=== PATIENT | female | born 1970 | race Caucasian/White ===

== ENCOUNTER 2017-06-27 06:35 | Emergency (ER) | payer OTHER ==
[2017-06-27] MEDS ORDERED: NS 1,000 ML IV (07:39)
[2017-06-27] MEDS: KETOROLAC 60 MG/2 ML VIAL (J1885) IM (08:12)
[2017-06-27 08:38] LABS: D-DIMER QUANT 937.1 ng/ml (<500)
[2017-06-27 08:49] LABS: CPK CREATINE PHOSPHOKINASE 91 U/L (26-192); TROPONIN I < 0.02 NG/ML (< 0.10)
[2017-06-27 08:50] LABS: MB/CK RELATIVE INDEX 1.09 (< OR =4)
[2017-06-27 09:43] LABS: ANION GAP 9 MEQ/L (8-16); BLOOD UREA NITROGEN 17 MG/DL (7-18); CALCIUM LEVEL 8.9 MG/DL (8.5-10.1); CARBON DIOXIDE LEVEL 24 MEQ/L (21-32); CHLORIDE LEVEL 103 MEQ/L (98-107); CREATININE FOR GFR 0.82 MG/DL (0.55-1.30); GLOMERULAR FILTRATION RATE > 60.0 (>58); GLUCOSE, FASTING 97 MG/DL (70-100); POTASSIUM SERUM 4.5 MEQ/L (3.5-5.1); SODIUM LEVEL 136 MEQ/L (136-145)
[2017-06-27] MEDS ORDERED: ISOVUE-370 76% 100ML VIAL (Q9967) As Ordered (09:57)
== END 2017-06-27 11:18 | disposition home or self-care (01) ==
LOC: M ED 06:35
DX: R07.89 Other chest pain (principal); I10 Essential (primary) hypertension; Z79.899 Other long term (current) drug therapy; Z88.1 Allergy status to other antibiotic agents; Z88.2 Allergy status to sulfonamides; Z88.8 Allergy status to other drugs, medicaments and biological substances
CPT/HCPCS: Q9967

== ENCOUNTER 2018-11-02 01:53 | Emergency (ER) | payer OTHER ==
[~2018-11-02] VITALS: Ht 160 cm; Wt 88.6 kg
[~2018-11-02 01:53] MED LIST: ADVAIR; DESO0.0557; DICL1GEL3; DOXE25CA; FLUO1OPD; LISI10TA4; MOME50SP2; NAPR-837 PO; OMEP40CA2; VENL75CA2; XYZA5TAB4
[2018-11-02 01:54] VITALS: BP 143/81
[2018-11-02] MEDS ORDERED: methylPREDNISolone INJ 125 MG/2 ML VIAL (J2930) IM ONE (02:30)
== END 2018-11-02 03:51 | disposition home or self-care (01) ==
LOC: M ED 01:53
DX: R22.0 Localized swelling, mass and lump, head (principal); F33.9 Major depressive disorder, recurrent, unspecified; F41.9 Anxiety disorder, unspecified; Z79.899 Other long term (current) drug therapy; Z88.1 Allergy status to other antibiotic agents; Z88.2 Allergy status to sulfonamides; Z88.8 Allergy status to other drugs, medicaments and biological substances
CPT/HCPCS: 96372; 99283; J2930

== ENCOUNTER → 2018-11-13 | Outpatient (REF) ==
[2018-11-13 14:43] LABS: BASO # 0.1 10^3/uL (0.0-0.2); BASO % 0.6 % (0.0-1.0); EOS # 0.3 10^3/uL (0.0-0.50); HEMATOCRIT 37.7 % (36.0-47.0); HEMOGLOBIN 11.9 g/dl (12.0-15.5); LYMPH # 2.6 10^3/uL (1.5-4.5); LYMPH % 21.3 % (24.0-44.0); MEAN CORPUSCULAR HEMOGLOBIN 27.5 pg (27.0-33.0); MEAN CORPUSCULAR HGB CONC 31.6 g/dl (32.0-36.5); MEAN CORPUSCULAR VOLUME 87.1 fl (80.0-96.0); MONO # 0.8 10^3/uL (0.0-0.8); MONO % 6.1 % (0.0-5.0); NEUTROPHILS # 8.6 10^3/uL (1.8-7.7); NEUTROPHILS % 69.5 % (36.0-66.0); PLATELET COUNT, AUTOMATED 412 10^3/uL (150-450); RED BLOOD COUNT 4.33 10^6/uL (4.00-5.40); WHITE BLOOD COUNT 12.4 10^3/uL (4.0-10.0)
== END ==
LOC: M LABSMT 13:44
PROVIDERS: ATTEND Allergy & Immunology Allergy
DX: J45.30 Mild persistent asthma, uncomplicated (principal)

== ENCOUNTER 2019-07-11 23:47 | Emergency (ER) | payer OTHER ==
[~2019-07-11] VITALS: Ht 160 cm; Wt 86.5 kg
[~2019-07-11 23:47] MED LIST changes: -OMEP40CA2; +OMEP40CA97
[2019-07-12] MEDS ORDERED: ONDANSETRON 4MG/2ML VIAL (J2405) IV ONE (00:30)
[2019-07-12] MEDS ORDERED: KETOROLAC 30 MG/ML VIAL (J1885) IV ONE (00:30)
[2019-07-12] MEDS ORDERED: NS 1,000 ML IV ONE (00:30)
[2019-07-12 01:17] LABS: BASO # 0.1 10^3/uL (0.0-0.2); BASO % 0.6 % (0.0-1.0); EOS # 0.2 10^3/uL (0.0-0.5); EOS % 1.3 % (0.0-3.0); HEMATOCRIT 42.9 % (36.0-47.0); LYMPH # 3.1 10^3/uL (1.5-5.0); LYMPH % 27.8 % (24.0-44.0); MEAN CORPUSCULAR HEMOGLOBIN 26.8 pg (27.0-33.0); MEAN CORPUSCULAR HGB CONC 32.6 g/dl (32.0-36.5); MEAN CORPUSCULAR VOLUME 82.2 fl (80.0-96.0); MONO # 0.8 10^3/uL (0.0-0.8); PLATELET COUNT, AUTOMATED 461 10^3/uL (150-450); RED BLOOD COUNT 5.22 10^6/uL (4.00-5.40); WHITE BLOOD COUNT 11.2 10^3/uL (4.0-10.0)
[2019-07-12] MEDS ORDERED: ISOVUE-370 76% 100ML VIAL (Q9967) As Ordered ONE (01:24)
[2019-07-12 01:45] LABS: ALBUMIN 3.6 GM/DL (3.2-5.2); ALT/SGPT 24 U/L (12-78); BILIRUBIN,DIRECT 0.2 MG/DL (0.0-0.2); BILIRUBIN,TOTAL 0.6 MG/DL (0.2-1.0); BLOOD UREA NITROGEN 14 MG/DL (7-18); CALCIUM LEVEL 9.5 MG/DL (8.5-10.1); CARBON DIOXIDE LEVEL 22 MEQ/L (21-32); CHLORIDE LEVEL 103 MEQ/L (98-107); CK-MB VALUE MASS 1.4 NG/ML (<3.6); CPK CREATINE PHOSPHOKINASE 158 U/L (26-192); CREATININE FOR GFR 0.76 MG/DL (0.55-1.30); GLOMERULAR FILTRATION RATE > 60.0 (>58); GLUCOSE, FASTING 84 MG/DL (70-100); LIPASE 100 U/L (73-393); MB/CK RELATIVE INDEX 0.89 (< OR =4); SODIUM LEVEL 135 MEQ/L (136-145); TOTAL PROTEIN 7.6 GM/DL (6.4-8.2); TROPONIN I < 0.02 NG/ML (< 0.10)
--- NOTE | 2019-07-12 02:56 | REPVR ---
PROCEDURE INFORMATION: Exam: CT Abdomen And Pelvis With Contrast Exam date and time: 07/12/2019 12:23 AM Age: 48 years old Clinical indication: Upper abdominal pain and a history of a small bowel obstruction. TECHNIQUE: Imaging protocol: Computed tomography of the abdomen and pelvis with intravenous contrast. Radiation optimization: All CT scans at this facility use at least one of these dose optimization techniques: automated exposure control; mA and/or kV adjustment per patient size (includes targeted exams where dose is matched to clinical indication); or iterative reconstruction. Contrast material: ISO; Contrast volume: 100 ml; Contrast route: AC; COMPARISON: No relevant prior studies available. FINDINGS: Lungs: The imaged portions of the lung bases are clear. Heart: No cardiomegaly or pericardial effusion. Diaphragm: Intact. Liver: The attenuation of the liver is more than 40 Hounsfield units lower in attenuation compared to the spleen, which is compatible with fatty liver infiltration. No liver lesion is seen. The contour of the liver is smooth. No hepatomegaly is noted. Gallbladder and bile ducts: No calcified gallstones are noted. No gallbladder wall thickening, pericholecystic fluid, or pericholecystic inflammatory changes are identified. No dilation of the intrahepatic or extrahepatic bile ducts is noted. Pancreas: Normal. No dilation of the main pancreatic duct is noted. There is no inflammatory fat stranding around the pancreas to suggest acute pancreatitis. Spleen: Normal. No splenomegaly is noted. Adrenals: Normal. No adrenal mass is noted. Kidneys and ureters: The kidneys are normal in appearance. No renal lesion is noted. No calculi are seen in the kidneys or ureters. There is no hydronephrosis or hydroureter. There are no wedge-shaped areas of low attenuation in the kidneys to suggest pyelonephritis. There is no renal abscess or perinephric fluid collection. Stomach and bowel: Postoperative changes are noted from a Sarah fundoplication. There is no evidence for a bowel obstruction, diverticulosis, diverticulitis, colitis, perforated viscus, pneumatosis intestinalis, intussusception, or volvulus. There is a large amount of formed stool in the cecum, ascending colon, and transverse colon. There is a mild amount of formed stool in the descending colon. Appendix: Normal. There is no evidence for appendicitis. Intraperitoneal space: No free air. No fluid collection. There are surgical clips in the upper abdomen. Retroperitoneal space: No fluid collection. No mass. Vasculature: The abdominal aorta is patent, normal in caliber, and there is no dissection. The iliac arteries, common femoral arteries, renal arteries, celiac artery, superior mesenteric artery, and inferior mesenteric artery are patent. There are 2 main right renal arteries and 2 main left renal arteries. The renal veins are patent. Lymph nodes: No enlarged lymph nodes. Bladder: The partially distended urinary bladder is unremarkable. No stones or masses are seen in the bladder. Reproductive: The uterus is anteverted. There is a 12 mm corpus luteal cyst in the left ovary for which follow-up is not necessary. The right ovary is unremarkable. There is a surgical clip in the right adnexa. Bones/joints: No fracture or dislocation is noted. There is no suspicious osteolytic or osteoblastic lesion. There are degenerative changes in the lumbar spine. Soft tissues: There is a midline vertical incision scar in the anterior abdominal wall. There are 2 small fat containing midline incisional hernias located approximately 7 cm above the umbilicus (image 49 of the axial series 201). No soft tissue fluid collection is noted. IMPRESSION: 1. Large amount of formed stool in the cecum, ascending colon, and transverse colon and a mild amount of formed stool in the descending colon. No bowel obstruction. 2. Two small fat containing midline incisional hernias located approximately 7 cm above the umbilicus. 3. Fatty liver. Electronically signed by: Timothy Wilcox On 07/12/2019 02:55:56 AM
[2019-07-12] MEDS ORDERED: MIRA3350 PO (03:12)
[2019-07-12] MEDS ORDERED: MAGN296S16 PO (03:12)
[2019-07-12 03:23] VITALS: BP 120/78
--- NOTE | 2019-07-12 08:00 | ECGEPIP ---
[facility] - ED Test Date: 2019-07-12 Pat Name: MICH ORELLANA Department: Room: - Gender: Female Pct: APOLINAR : 1970 Requested By: EVA Small Order Number: [id number] Reading MD: Crow Prabhakar Measurements Intervals [place] Rate: 87 P: -8 IA: 127 QRS: -7 QRSD: 90 T: 73 QT: 343 QTc: 415 Interpretive Statements SINUS RHYTHM LOW QRS VOLTAGE IN PRECORDIAL LEADS VOLTAGE CRITERIA FOR LVH NONSPECIFIC ST & T-WAVE ABNORMALITY SIMILAR TO 06/27/17 Electronically Signed on 07-12-2019 7:59:49 EDT by Crow Prabhakar
== END 2019-07-12 03:25 | disposition home or self-care (01) ==
LOC: M ED 23:47
DX: K59.00 Constipation, unspecified (principal); I10 Essential (primary) hypertension; J45.909 Unspecified asthma, uncomplicated; F33.9 Major depressive disorder, recurrent, unspecified; F41.9 Anxiety disorder, unspecified; K21.9 Gastro-esophageal reflux disease without esophagitis; Z79.899 Other long term (current) drug therapy; Z88.1 Allergy status to other antibiotic agents; Z88.2 Allergy status to sulfonamides; Z88.8 Allergy status to other drugs, medicaments and biological substances; Z91.048 Other nonmedicinal substance allergy status
CPT/HCPCS: 74177; 80048; 80076; 81001; 82550; 82553; 83690; 84484; 85025; 93005; 96361; 96374; 96375; 99284; J1885; J2405; Q9967

== ENCOUNTER 2020-02-22 04:49 | Emergency (ER) | payer OTHER ==
[~2020-02-22] VITALS: Ht 160 cm; Wt 70.5 kg
[~2020-02-22 04:49] MED LIST changes: +MAGN296S16 PO; +MIRA3350 PO
[2020-02-22] MEDS ORDERED: ASMA1AER3 (04:57)
[2020-02-22] MEDS ORDERED: FLUTISP (04:57)
[2020-02-22] MEDS ORDERED: STRA10CA (04:57)
[2020-02-22] MEDS ORDERED: DOXE50CA (04:57)
[2020-02-22] MEDS ORDERED: NS 1,000 ML IV ONE (05:15)
[2020-02-22 06:05] LABS: BASO % 0.3 % (0.0-1.0); EOS # 0.2 10^3/uL (0.0-0.5); EOS % 1.6 % (0.0-3.0); HEMOGLOBIN 11.9 g/dl (12.0-15.5); LYMPH # 1.9 10^3/uL (1.5-5.0); LYMPH % 16.6 % (24.0-44.0); MEAN CORPUSCULAR HEMOGLOBIN 26.9 pg (27.0-33.0); MEAN CORPUSCULAR HGB CONC 30.5 g/dl (32.0-36.5); MEAN CORPUSCULAR VOLUME 88.2 fl (80.0-96.0); MONO # 0.8 10^3/uL (0.0-0.8); MONO % 6.6 % (0.0-5.0); NEUTROPHILS # 8.6 10^3/uL (1.5-8.5); NEUTROPHILS % 74.5 % (36.0-66.0); PLATELET COUNT, AUTOMATED 367 10^3/uL (150-450); RED BLOOD COUNT 4.42 10^6/uL (4.00-5.40); WHITE BLOOD COUNT 11.6 10^3/uL (4.0-10.0)
[2020-02-22] MEDS ORDERED: ISOVUE-370 76% 100ML VIAL As Ordered ONE (06:10)
[2020-02-22] MEDS ORDERED: MORPHINE 4 MG/ML 1ML VIAL/SYRINGE (J2270) IV PRN (06:15)
[2020-02-22] MEDS ORDERED: ONDANSETRON 4MG/2ML VIAL IV ONE (06:15)
[2020-02-22 06:21] LABS: ALBUMIN 3.1 GM/DL (3.2-5.2); ALT/SGPT 185 U/L (12-78); BILIRUBIN,DIRECT 0.4 MG/DL (0.0-0.2); BILIRUBIN,TOTAL 0.5 MG/DL (0.2-1.0); CK-MB VALUE MASS 1.2 NG/ML (<3.6); CPK CREATINE PHOSPHOKINASE 87 U/L (26-192); LIPASE 80 U/L (73-393); MB/CK RELATIVE INDEX 1.38 (< OR =4); TOTAL PROTEIN 6.7 GM/DL (6.4-8.2); TROPONIN I < 0.02 NG/ML (< 0.10)
--- NOTE | 2020-02-22 06:41 | REPVR ---
PROCEDURE INFORMATION: Exam: CT Abdomen And Pelvis With Contrast Exam date and time: 02/22/2020 6:19 AM Age: 49 years old Clinical indication: Abdominal pain; Generalized; Additional info: Generalized abd pain TECHNIQUE: Imaging protocol: Computed tomography of the abdomen and pelvis with intravenous contrast. Radiation optimization: All CT scans at this facility use at least one of these dose optimization techniques: automated exposure control; mA and/or kV adjustment per patient size (includes targeted exams where dose is matched to clinical indication); or iterative reconstruction. Contrast material: ISOVUE 370; Contrast volume: 100 ml; Contrast route: INTRAVENOUS (IV); COMPARISON: CT ABD/PEL W/IV CONTRAST ONLY 07/12/2019 1:50 AM FINDINGS: Liver: Normal. No mass. Gallbladder and bile ducts: The gallbladder is significantly distended measuring up to 10.1 x 4.3 cm. There is trace pericholecystic fluid. There is mild intrahepatic biliary ductal dilatation. Pancreas: Normal. No ductal dilation. Spleen: Normal. No splenomegaly. Adrenals: Normal. No mass. Kidneys and ureters: Normal. No hydronephrosis. Stomach and bowel: There is apparent thickening of the GE junction. Appendix: No evidence of appendicitis. Intraperitoneal space: Unremarkable. No free air. No significant fluid collection. Vasculature: Unremarkable. No abdominal aortic aneurysm. Lymph nodes: Unremarkable. No enlarged lymph nodes. Urinary bladder: Unremarkable as visualized. Reproductive: There is a 1.8 cm left ovarian cyst. Bones/joints: There is multilevel lumbar spine facet degenerative and productive changes. Soft tissues: There is midline upper abdominal wall hernia measuring 3.3 x 2.5 cm containing omental fat. IMPRESSION: 1. Hydropic gallbladder with trace pericholecystic fluid and mild intrahepatic biliary ductal dilatation suspicious for acute cholecystitis. CBD is upper normal in size. Correlate with LFTs and bilirubin level. Ultrasound may be obtained for further evaluation. 2. Nonspecific thickened GE junction could be secondary to reflux or esophagitis however other underlying etiologies cannot be excluded. 3. 3.3 x 2.5 cm upper abdominal midline surgical scar hernia containing omental fat. 4. 1.8 cm left ovarian cyst. Electronically signed by: Garo Ferraro On 02/22/2020 06:41:22 AM
--- NOTE | 2020-02-22 07:47 | REPVR ---
PROCEDURE INFORMATION: Exam: US Abdomen, Limited; Right Upper Quadrant Exam date and time: 02/22/2020 7:30 AM Age: 49 years old Clinical indication: Abdominal pain; Epigastric; Additional info: Upper abd pain, elevated lfts TECHNIQUE: Imaging protocol: US abdomen. Real time ultrasound with image documentation. Limited exam focused on the right upper quadrant. COMPARISON: CT ABD/PEL W/IV CONTRAST ONLY 02/22/2020 6:14 AM FINDINGS: Liver: The liver is distended containing multiple shadowing gallstones. The gallbladder wall is slightly thickened measuring around 4 mm with some mural edema and pericholecystic hypoechogenicity possibly some fluid. Gallbladder: See "Liver" finding. Common bile duct: The CBD is prominent measuring 7-8 mm. Pancreas: Pancreatic head and body are unremarkable. The pancreatic tail is obscured by bowel gas. Right kidney: The right kidney measures 9.6 x 4.8 x 3.8 cm with dilated renal pelvis likely extrarenal pelvis rather than hydronephrosis. IMPRESSION: 1. Distended gallbladder containing multiple gallstones with sonographic findings suspicious for cholecystitis. 2. Dilated CBD up to 7-8 mm. Correlate with bilirubin level. MRI with MRCP may be obtained to assess for choledocholithiasis or obstructive CBD process. Electronically signed by: Garo Ferraro On 02/22/2020 07:47:16 AM
[2020-02-22] MEDS ORDERED: AUGM875T28 PO (08:06)
[2020-02-22] MEDS ORDERED: NORC1TAB7 PO (08:08)
[2020-02-22] MEDS ORDERED: AUGMENTIN 875 MG TAB PO ONE (08:15)
[2020-02-22 08:42] VITALS: BP 122/85
--- NOTE | 2020-02-22 10:18 | ED PDOC ---
Post-Departure Follow-Up dr covington and dr velez faxed formal report of ct abd/p and gb us for fu Dharmesh Alva MD Feb 22, 2020 10:18
--- NOTE | 2020-02-24 08:55 | ECGEPIP ---
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
== END 2020-02-22 09:05 | disposition home or self-care (01) ==
LOC: M ED 04:49
DX: K80.20 Calculus of gallbladder without cholecystitis without obstruction (principal); K44.9 Diaphragmatic hernia without obstruction or gangrene; Z79.899 Other long term (current) drug therapy; Z88.1 Allergy status to other antibiotic agents; Z88.2 Allergy status to sulfonamides; Z88.8 Allergy status to other drugs, medicaments and biological substances; Z91.048 Other nonmedicinal substance allergy status
CPT/HCPCS: 74177; 76705; 80047; 80076; 82550; 82553; 83690; 84484; 85025; 93005; 93041; 96361; 96374; 96375; 99284; J2270; J2405; Q9967

== ENCOUNTER → 2020-03-10 | Outpatient (CLI) | payer OTHER ==
[~2020-03-10] MED LIST changes: +ASMA1AER3; +AUGM875T28 PO; +DOXE50CA; +FLUTISP; +NORC1TAB7 PO; +STRA10CA
== END ==
LOC: M LABSMTC 12:11
PROVIDERS: ATTEND Anesthesiology
DX: Z01.812 Encounter for preprocedural laboratory examination (principal); Z20.828 Contact with and (suspected) exposure to other viral communicable diseases

== ENCOUNTER 2020-03-15 07:09 | Day surgery (SDC) | payer OTHER ==
[~2020-03-15] VITALS: Ht 160 cm; Wt 70.3 kg
[~2020-03-15 07:09] MED LIST changes: +LIDOCAINE 1% MDV 20ML VIAL SQ PRN; +LR 1,000 ML IV ONE
[2020-03-15] MEDS ORDERED: D5W 250 ML IV ONE (08:45)
[2020-03-15] MEDS ORDERED: BUPIVACAINE/EPIN 0.5% 30 ML VIAL As Ordered ONE (09:12)
[2020-03-15] MEDS ORDERED: fentaNYL 250 MCG/5 ML INJECTION (J3010) As Ordered ONE (09:52)
[2020-03-15] MEDS ORDERED: ONDANSETRON 4MG/2ML VIAL As Ordered ONE (09:52)
[2020-03-15] MEDS ORDERED: KETOROLAC 60MG 2ML VIAL As Ordered ONE (09:52)
[2020-03-15] MEDS ORDERED: ROCURONIUM BROMIDE 50 MG/5 ML VIAL As Ordered ONE (09:52)
[2020-03-15] MEDS ORDERED: LIDOCAINE 2% 100MG/5ML SDV (FOR ANES.) As Ordered ONE (09:52)
[2020-03-15] MEDS ORDERED: dexameTHASONE 4 MG/ML 1ML VIAL (J1100 PER 1MG) As Ordered ONE (09:52)
[2020-03-15] MEDS ORDERED: propofoL 200 MG/20 ML VIAL As Ordered ONE (09:52)
[2020-03-15] MEDS ORDERED: MIDAZOLAM INJ 2MG/2ML VIAL (J2250 PER 1MG) As Ordered ONE (09:52)
[2020-03-15] MEDS ORDERED: ACETAMINOPHEN 1000MG 100ML IV BTL (OFIRMEV) (J0131 PER 10MG) As Ordered ONE (09:59)
[2020-03-15] MEDS ORDERED: SUGAMMADEX SODIUM 500 MG/5 ML VIAL (BRIDION) As Ordered ONE (10:03)
[2020-03-15] MEDS ORDERED: METOCLOPRAMIDE INJ 10MG/2ML VIAL (J2765 PER 1) IV PRN (11:15)
[2020-03-15] MEDS ORDERED: LR 1,000 ML IV SCH (11:15)
[2020-03-15] MEDS ORDERED: fentaNYL 100 MCG/2 ML INJECTION (J3010) IV PRN (11:15)
[2020-03-15] MEDS ORDERED: MORPHINE 2 MG/ML 1ML VIAL (J2270) IV PRN (11:15)
[2020-03-15] MEDS ORDERED: oxyCODONE 5MG TAB PO PRN (11:15)
[2020-03-15] MEDS ORDERED: ONDANSETRON 4MG/2ML VIAL IV PRN (11:15)
[2020-03-15] MEDS ORDERED: NORCO, ANEXSIA 5/325MG TABLET (HYDROcodone/ACETAMINOPHEN) PO PRN (11:30)
[2020-03-15 13:00] VITALS: BP 126/75
--- NOTE | 2020-03-16 08:01 | RO ---
DATE OF OPERATION: 03/15/2020 PREOPERATIVE DIAGNOSIS: Symptomatic cholelithiasis. POSTOPERATIVE DIAGNOSIS: Symptomatic cholelithiasis. PROCEDURE: Robotic cholecystectomy SURGEON: Sumit Brewer DO MEDICAL GENETICS DIRECTOR: Dennise Pablo ANESTHESIA: General ESTIMATED BLOOD LOSS: 5 mL COMPLICATIONS: None. INDICATION FOR PROCEDURE: The patient is a 49-year-old female with multiple previous abdominal surgeries, who presents with symptomatic cholelithiasis. Recommendation was to proceed with robotic cholecystectomy. Risks and benefits of procedure not limited to, but include bleeding, infection, hernia formation, damage to surrounding structures, need for further surgery were discussed in detail with the patient and informed consent was obtained. Procedure was planned. OPERATIVE PROCEDURE: The patient was brought back to operating room 7. After successful sedation, the abdomen was sterilely prepped and draped. Next, time- out was done to confirm proper patient and proper procedure. Following that, an 8 mm incision was made in the left upper quadrant, Veress needle inserted and the abdomen was insufflated at 15 mmHg. The Veress needle was then removed an 8 mm Optiview port was used to gain access to the abdomen. Once the abdomen was entered, multiple adhesions identified. Upon entry of the camera, I was able to find some free space in the right upper quadrant. I then placed 2 more ports in the right upper quadrant laterally; then from that side I was able to look back on the left side through the camera and I identified that the initial port placement was posterior to the transverse colon that was adhered along the lateral and anterior abdominal mckeon. There did not appear to be any signs of any injury from entry. However, due to the location of the transverse colon adhesions, I was unable to place any ports on the left side of the abdomen. I was able to get 3 ports in total in close proximity in the right upper quadrant only. Through those three ports, we were then able to dock to the robot. The fundus of the gallbladder was elevated up; just using the one right arm was able to dissect around the cystic duct and cystic artery. Once they were both clearly identified and confirmed using Firefly, I was able to doubly clip and cut them. The gallbladder was then dissected from gallbladder fossa using electrocautery and placed inside of a 5 mm Endo catch bag and brought out intact through the right lateral port site. Once the gallbladder was removed, the left upper quadrant was again examined to make sure there were no signs of any bleeding or any leakage or any injury from the transverse colon. Everything appeared to be intact. The ports were then removed. Abdomen was desulfated. Skin incisions were closed with 4-0 Vicryl subcuticular sutures and the abdomen and was cleaned and dried. Steri-Strips, 4 x 4 and tape were applied. MTDD
== END 2020-03-15 13:20 | disposition home or self-care (01) ==
LOC: M SDC 07:09
PROVIDERS: ATTEND Surgery
DX: K80.10 Calculus of gallbladder with chronic cholecystitis without obstruction (principal); I10 Essential (primary) hypertension; K21.9 Gastro-esophageal reflux disease without esophagitis; F41.9 Anxiety disorder, unspecified; F32.9 Major depressive disorder, single episode, unspecified; K59.00 Constipation, unspecified; J45.909 Unspecified asthma, uncomplicated; Z79.899 Other long term (current) drug therapy; Z88.1 Allergy status to other antibiotic agents; Z88.2 Allergy status to sulfonamides
CPT/HCPCS: 47562; 81025; 88304; J0131; J1100; J1885; J2250; J2405; J3010; S2900

== ENCOUNTER 2020-09-16 20:33 | Emergency (ER) | payer OTHER ==
[~2020-09-16] VITALS: Ht 160 cm; Wt 70.9 kg
[~2020-09-16 20:33] MED LIST changes: -LIDOCAINE 1% MDV 20ML VIAL SQ PRN; +LISI10TA22; -LISI10TA4; -LR 1,000 ML IV ONE
--- NOTE | 2020-09-16 23:48 | REPVR ---
PROCEDURE INFORMATION: Exam: XR Right Ankle Exam date and time: 09/16/2020 10:52 PM Age: 49 years old Clinical indication: Other: Injury TECHNIQUE: Imaging protocol: XR Right ankle. Views: 3 or more views. COMPARISON: No relevant prior studies available. FINDINGS: Bones/joints: Mild degenerative joint disease. Normal alignment. No fractures or dislocation. Soft tissues: Normal. IMPRESSION: No acute findings. PROCEDURE INFORMATION: Exam: XR Left Ankle Exam date and time: 09/16/2020 10:52 PM Age: 49 years old Clinical indication: Other: Injury TECHNIQUE: Imaging protocol: XR Left ankle. Views: 3 or more views. COMPARISON: No relevant prior studies available. FINDINGS: Bones/joints: Mild degenerative joint disease. Normal alignment without fractures or dislocation. Soft tissues: Normal. IMPRESSION: No acute findings. Electronically signed by: Ant Santa On 09/16/2020 23:47:16 PM
--- NOTE | 2020-09-17 03:54 | REPVR ---
PROCEDURE INFORMATION: Exam: XR Right Foot Exam date and time: 09/17/2020 3:47 AM Age: 50 years old Clinical indication: Other: Twisted both feet while walking TECHNIQUE: Imaging protocol: XR Right foot. Views: 3 or more views. COMPARISON: CR Ankle, complete BILATERAL 2020-09-16 22:37 FINDINGS: Bones/joints: No acute fracture or dislocation. Advanced degenerative joint disease at the base of the 1st metatarsal cuneiform joint. Soft tissues: Normal. IMPRESSION: 1. No acute osseous abnormality. 2. No acute findings. PROCEDURE INFORMATION: Exam: XR Left Foot Exam date and time: 09/17/2020 3:47 AM Age: 50 years old Clinical indication: Other: Twisted both feet while walking TECHNIQUE: Imaging protocol: XR Left foot. Views: 3 or more views. COMPARISON: CR Ankle, complete BILATERAL 2020-09-16 22:37 FINDINGS: Bones/joints: Plate and screws within the 1st metatarsal. No acute fracture or dislocation. No acute fracture or dislocation. Soft tissues: Normal. IMPRESSION: No acute osseous abnormality. Electronically signed by: Ant Santa On 09/17/2020 03:53:40 AM
[2020-09-17 04:15] VITALS: BP 137/87
== END 2020-09-17 04:22 | disposition home or self-care (01) ==
LOC: M ED 20:33
DX: S93.401A Sprain of unspecified ligament of right ankle, initial encounter (principal); Y99.0 Civilian activity done for income or pay; Y92.9 Unspecified place or not applicable; Y93.9 Activity, unspecified; Z88.1 Allergy status to other antibiotic agents; Z88.8 Allergy status to other drugs, medicaments and biological substances

== ENCOUNTER → 2021-02-10 | Outpatient (REF) | payer BC ==
[~2021-02-10] MED LIST changes: +OMEP40CA4; -OMEP40CA97
[2021-02-10 11:37] LABS: APPEARANCE, URINE CLEAR (CLEAR); BACTERIA, URINE AUTO 1+ (NEGATIVE); BILIRUBIN, URINE AUTO NEGATIVE (NEGATIVE); BLOOD, URINE BLOOD NEGATIVE (NEGATIVE); COLOR, URINE YELLOW (YELLOW); GLUCOSE, URINE (UA) AUTO NEGATIVE (NEGATIVE); KETONE, URINE AUTO NEGATIVE (NEGATIVE); LEUKOCYTE ESTERASE, URINE AUTO NEGATIVE (NEGATIVE); MUCUS, URINE SMALL (NEGATIVE); NITRITE, URINE AUTO NEGATIVE (NEGATIVE); PROTEIN, URINE AUTO NEGATIVE (NEGATIVE); RBC, URINE AUTO 2 /HPF (0-3); SQUAMOUS EPITHELIAL CELL UR AU 1 /HPF (0-6); UROBILINOGEN, URINE AUTO 0.2 mg/dL (0.0-2.0); WBC, URINE AUTO 2 /HPF (0-3)
== END ==
LOC: M LAB REF 10:45
PROVIDERS: ATTEND Internal Medicine Infectious Disease
DX: N39.0 Urinary tract infection, site not specified (principal)

== ENCOUNTER → 2021-02-14 | Outpatient (CLI) | payer BC ==
--- NOTE | 2021-02-14 09:25 | REP ---
INDICATION: RECURRENT UTI COMPARISON: None TECHNIQUE: Real time rangel scale ultrasound examination using curved array transducer. FINDINGS: Bilateral kidneys are essentially normal in contour, size, echogenicity, and reniform shape. No hydronephrosis, nephrolithiasis, cystic or renal mass lesions are identified. Right kidney measures 9.8 x 5.1 x 3.7 cm. Left kidney measures 9.8 x 4.1 x 3.9 cm. The bladder is normal in appearance and bilateral ureteral jets are identified. IMPRESSION: 1. Normal renal ultrasound. <Electronically signed by Saran Bradford > 02/14/21 [id number]
== END ==
LOC: M RAD 08:49
PROVIDERS: ATTEND Internal Medicine Infectious Disease
DX: N39.0 Urinary tract infection, site not specified (principal)

== ENCOUNTER → 2021-02-28 | Outpatient (REF) | LOC: M EMP 14:09 | PROVIDERS: ATTEND Family Medicine | DX: Z20.822 Contact with and (suspected) exposure to COVID-19 (principal) ==

== ENCOUNTER → 2021-03-14 | Outpatient (REF) | payer BC ==
[2021-03-14 18:23] LABS: APPEARANCE, URINE CLEAR (CLEAR); BACTERIA, URINE AUTO 1+ (NEGATIVE); BILIRUBIN, URINE AUTO NEGATIVE (NEGATIVE); BLOOD, URINE BLOOD NEGATIVE (NEGATIVE); COLOR, URINE YELLOW (YELLOW); GLUCOSE, URINE (UA) AUTO NEGATIVE (NEGATIVE); KETONE, URINE AUTO NEGATIVE (NEGATIVE); LEUKOCYTE ESTERASE, URINE AUTO NEGATIVE (NEGATIVE); NITRITE, URINE AUTO NEGATIVE (NEGATIVE); PROTEIN, URINE AUTO NEGATIVE (NEGATIVE); RBC, URINE AUTO 0 /HPF (0-3); SPECIFIC GRAVITY URINE AUTO 1.012 (1.002-1.035); SQUAMOUS EPITHELIAL CELL UR AU 1 /HPF (0-6); UROBILINOGEN, URINE AUTO 0.2 mg/dL (0.0-2.0); WBC, URINE AUTO 3 /HPF (0-3)
== END ==
LOC: M SFHCPLAZ 17:07
PROVIDERS: ATTEND Internal Medicine Infectious Disease
DX: N39.0 Urinary tract infection, site not specified (principal)

== ENCOUNTER → 2021-04-21 | Outpatient (REF) | LOC: M EMP 13:03 | PROVIDERS: ATTEND Family Medicine | DX: Z11.52 Encounter for screening for COVID-19 (principal); Z20.822 Contact with and (suspected) exposure to COVID-19 ==

== ENCOUNTER → 2021-04-26 | Outpatient (REF) | LOC: M EMP 09:07 | PROVIDERS: ATTEND Family Medicine | DX: Z11.52 Encounter for screening for COVID-19 (principal); Z20.822 Contact with and (suspected) exposure to COVID-19 ==

== ENCOUNTER → 2021-07-27 | Outpatient (REF) ==
[2021-07-27 13:19] LABS: RSV AMPLIFICATION NEGATIVE (NEGATIVE)
== END ==
LOC: M LABSMTC 10:26
PROVIDERS: ATTEND Family Medicine
DX: Z20.822 Contact with and (suspected) exposure to COVID-19 (principal)

== ENCOUNTER → 2022-02-22 | Outpatient (REF) | LOC: M EMP 15:52 | PROVIDERS: ATTEND Family Medicine | DX: Z20.822 Contact with and (suspected) exposure to COVID-19 (principal) ==

== ENCOUNTER → 2022-02-24 | Outpatient (REF) | LOC: M EMP 12:15 | PROVIDERS: ATTEND Family Medicine | DX: Z20.822 Contact with and (suspected) exposure to COVID-19 (principal) ==

== ENCOUNTER 2024-05-20 21:38 | Emergency (ER) | payer BC ==
[~2024-05-20] VITALS: Ht 160 cm; Wt 92.8 kg
[~2024-05-20 21:38] MED LIST changes: -ALB2.5NEB NEB; -AMOX500C PO; -AZIT-12 PO; -DELS1LIQ3 PO; -PRED20TA PO
[2024-05-20] MEDS ORDERED: AMOX500C PO (23:30)
[2024-05-20] MEDS ORDERED: AZIT-12 PO (23:30)
[2024-05-20] MEDS ORDERED: ALB2.5NEB NEB (23:32)
[2024-05-20] MEDS: predniSONE 20 MG TAB PO ONE (23:34)
[2024-05-20] MEDS ORDERED: PRED20TA PO (23:34)
[2024-05-20] MEDS: IPRATROPIUM 0.5MG/ALBUTEROL 2.5MG INH SOL UD 3ML (DUONEB) NEB ONE (23:34)
[2024-05-20] MEDS ORDERED: DELS1LIQ3 PO (23:34)
[2024-05-20 23:51] VITALS: BP 118/66; TEMP 97.9; O2SAT 93
== END 2024-05-20 23:49 | disposition home or self-care (01) ==
LOC: M ED 21:38
DX: J45.901 Unspecified asthma with (acute) exacerbation (principal); J01.10 Acute frontal sinusitis, unspecified; J09.X2 Influenza due to identified novel influenza A virus with other respiratory manifestations; K21.9 Gastro-esophageal reflux disease without esophagitis; F90.9 Attention-deficit hyperactivity disorder, unspecified type; Z88.1 Allergy status to other antibiotic agents; Z88.2 Allergy status to sulfonamides; Z88.8 Allergy status to other drugs, medicaments and biological substances; Z79.51 Long term (current) use of inhaled steroids; Z79.2 Long term (current) use of antibiotics; Z79.899 Other long term (current) drug therapy; Z79.52 Long term (current) use of systemic steroids
CPT/HCPCS: 87486; 87581; 87633; 87798; 87880; 99283; J7512

== ENCOUNTER → 2024-05-20 | Outpatient (REF) ==
[~2024-05-20] MED LIST changes: +ALB2.5NEB NEB; +AMOX500C PO; -ASMA1AER3; +AZIT-12 PO; +DELS1LIQ3 PO; +DICL100G10; -DICL1GEL3; +MOME13HF5; +PRED20TA PO
== END ==
LOC: M EMP 07:58
PROVIDERS: ATTEND Family Medicine
DX: Z11.52 Encounter for screening for COVID-19 (principal)